=== PATIENT | female | born 1950 | race Caucasian/White ===

== ENCOUNTER → 2018-02-20 | Outpatient (CLI) | payer BC, MEDICARE ==
--- NOTE | 2018-02-20 17:11 | KCIC ---
MRI of the lumbar spine without contrast 02/20/2018 CLINICAL HISTORY: Low back pain which radiates down the left leg for one month. TECHNIQUE: Unenhanced T1-weighted and T2-weighted sagittal and axial and inversion recovery sagittal images of the lumbar spine were obtained. FINDINGS: Comparison is made to the patient's MRI of the lumbar spine dated 06/22/2011. This was performed at [facility]. Mild to moderate S-shaped curvature of the thoracolumbar spine is seen. Degenerative signal changes are seen involving the L2-3, L3-4 and L5-S1 discs. Degenerative signal changes are seen within the marrow surrounding these discs. The patient is post laminectomy and fusion using cage like devices at L4-5. The conus medullaris is normal morphology, position, and signal characteristics. Rounded high signal intensity lesions are seen on the T2-weighted images involving both kidneys. These measure 5 mm to 3 cm in size. They likely represent cysts. At the L1-2, L2-3 and L3-4 disc spaces there are minimal to mild generalized disc bulges. Degenerative changes are seen involving the facet joints bilaterally. There is mild ligamentum flavum hypertrophy bilaterally. These findings do not result in significant central spinal canal or neural foraminal stenosis. At the L4-5 level degenerative changes are seen involving the facet joints bilaterally. These findings do not result in significant central spinal canal or neural foraminal stenosis. At the L5-S1 disc space there is a minimal generalized disc bulge. Degenerative changes are seen involving the facet joints bilaterally. These findings do not result in significant central spinal canal or neural foraminal stenosis. IMPRESSION: 1. Post laminectomy and fusion at L4-5. 2. The changes of degenerative disc disease are seen involving the lumbar spine. These findings do not result in significant central spinal canal or neural foraminal stenosis at any level. Electronically signed by: Kong Hernandez MD (02/20/2018 5:07 PM) [facility]-KCIC1
== END | disposition home or self-care (01) ==
LOC: KCIC MRI 13:41
PROVIDERS: ATTEND Physician Assistant Medical
DX: M51.36 Other intervertebral disc degeneration, lumbar region (principal); M47.897 Other spondylosis, lumbosacral region
CPT/HCPCS: 72148

== ENCOUNTER 2019-05-21 09:20 | Day surgery (SDC) | payer MEDICARE ==
[~2019-05-21 09:20] MED LIST: AMIO200T4 PO; APIX5TAB PO; FENO145T30 PO; GABA-585 PO; HYDROmorphone 2 MG/ML VIAL IV PRN; IV RINGERS,LACTATED 1000ML 1,000 ML IV SCH; LEVO175T5 PO; LIDOCAINE 1% PF 2 ML VIAL. ID PRN; LISI1TAB19 PO; LOVA40TA2 PO; METF500T16 PO; METO-239 PO; MORPHINE SULFATE 2 MG/ML VIAL. IV PRN; ONDANSETRON PF 4 MG/2 ML VIAL. IV PRN; PROCHLORPERAZINE 10 MG/2 ML VIAL. IV PRN; TYLENOL PM PO; VENL150T PO; fentaNYL PF VIAL 100 MCG/2 ML VIAL IV PRN
[2019-05-21] MEDS ORDERED: LIDOCAINE 2% TOPICAL JELLY 30GM TUBE. TP ONE (10:00)
[2019-05-21] MEDS ORDERED: BENZOCAINE ONE 20% MUCOSAL SPRAY. MM (10:00)
[2019-05-21] MEDS ORDERED: LIDOCAINE 2% VISCOUS 15 ML SOLUTION. SWSW ONE (10:00)
[2019-05-21] MEDS ORDERED: PROPOFOL 0 ML IV ONE (10:17)
[2019-05-21] MEDS ORDERED: LIDOCAINE 2% PF 5 ML VIAL. ONE (10:17)
[2019-05-21] MEDS ORDERED: ePHEDrine PF IN SALINE 50 MG/10 ML SYRINGE. IV ONE (10:17)
[2019-05-21 11:11] LABS: BASO # 0.1 x10^3/uL (0.0-0.2); BASO % 1 % (0-3); EOS # 0.1 x10^3/uL (0.0-0.7); EOS % 1 % (0-3); HEMATOCRIT 39.2 % (36.0-47.0); HEMOGLOBIN 12.6 g/dL (12.0-15.5); LYMPH # 2.7 x10^3/uL (1.0-4.8); LYMPH % 28 % (24-48); MEAN CORPUSCULAR HEMOGLOBIN 29 pg (25-35); MEAN CORPUSCULAR HGB CONC 32 g/dL (31-37); MEAN CORPUSCULAR VOLUME 89 fL (79-100); MONO # 0.8 x10^3/uL (0.0-1.1); MONO % 8 % (0-9); NEUT # 5.9 x10^3/uL (1.8-7.7); NEUT % 62 % (31-73); PLATELET COUNT 292 x10^3/uL (140-400); RED BLOOD COUNT 4.42 x10^6/uL (3.50-5.40); RED CELL DISTRIBUTION WIDTH 15.7 % (11.5-14.5); WHITE BLOOD COUNT 9.5 x10^3/uL (4.0-11.0)
[2019-05-21 11:18] LABS: PROTHROMBIN TIME PATIENT 16.1 SEC (11.7-14.0)
[2019-05-21 11:19] LABS: CALCIUM 8.9 mg/dL (8.5-10.1); CREATININE 0.9 mg/dL (0.6-1.0); GFR 62.1; POTASSIUM 3.8 mmol/L (3.5-5.1)
--- NOTE | 2019-05-21 11:25 | EKG ---
[facility] [address] [place] [address] Test Date: 2019-05-21 Test Time: 09:37:48 Pat Name: CHUY LIRA Department: Room: Gender: F General Service Officer: MOLLY Guerrero : 1950 Requested By: LION BEASLEY Order Number: [id number] Reading MD: Measurements Intervals [place] Rate: 60 P: [place]: QRS: 0 QRSD: 80 T: 48 QT: 432 QTc: 436 Interpretive Statements IRREGULAR RHYTHM, NO P-WAVE FOUND LEFTWARD AXIS QRS(T) CONTOUR ABNORMALITY CONSIDER ANTEROLATERAL MYOCARDIAL DAMAGE POSSIBLY ABNORMAL ECG RI6.01 No previous ECG available for comparison
--- NOTE | 2019-05-21 11:45 | EKG ---
[facility] [address] [place] [address] Test Date: 2019-05-21 Test Time: 11:32:49 Pat Name: CHUY LIRA Department: Room: Gender: F Die Grinder: : 1950 Requested By: LION BEASLEY Order Number: [id number] Reading MD: Measurements Intervals [place] Rate: 60 P: NE: QRS: -2 QRSD: 86 T: 52 QT: 448 QTc: 453 Interpretive Statements IRREGULAR RHYTHM, NO P-WAVE FOUND LEFTWARD AXIS NO SPECIFIC ECG ABNORMALITIES RI6.01 Unconfirmed report No previous ECG available for comparison
[2019-05-21 11:52] VITALS: BP 115/46
--- NOTE | 2019-05-21 13:27 | CARD ---
MR#: [id number] Date of Study: 05/21/2019 Ordering Physician: LION JESSICA, Referring Physician: LION JESSICA, Tech: Sayda Dey APPROVED REPORT EXAM: Transesophageal echocardiogram with color flow Doppler and Synchronized Cardioversion. INDICATION Atrial Fibrillation Echo Enhancing Agent Indication: Rule out thrombus Reason For Test : Rule out Intracardiac Thrombus. PROCEDURE After obtaining informed consent, patient underwent transesophageal echo in the PACU. Type of Sedation : General Anesthesia Sedation was administered by Mratin Barth. Sedation was achieved with Propofol 110mg intravenously. Transesophageal probe was inserted and advanced into esophagus by Hosea Jessica MD. The MT was performed without complications. Synchronized Cardioversion attempted: Unsuccessful after two shocks at 200J and 360J Throughout the procedure, the blood pressure, pulse oximetry, cardiac rhythm, and rate were monitored . LEFT VENTRICLE The left ventricle is normal size. There is mild to moderate concentric left ventricular hypertrophy. The left ventricular systolic function is normal and the ejection fraction is within normal range. T he Ejection Fraction is 50-55%. There is normal LV segmental wall motion. Tissue Doppler imaging reve als moderate left ventricular diastolic dysfunction. No left ventricle thrombus noted on this study. RIGHT VENTRICLE The right ventricle is normal size. There is normal right ventricular wall thickness. The right ventr icular systolic function is normal. ATRIA The left atrium size is normal. The right atrium size is normal. The interatrial septum is intact wit h no evidence for an atrial septal defect or patent foramen ovale as noted on 2-D or Doppler imaging. There is no thrombus noted in the left atrial appendage. AORTIC VALVE The aortic valve is calcified but opens well. Doppler and Color Flow revealed no significant aortic r egurgitation. There is no significant aortic valvular stenosis. MITRAL VALVE The mitral valve is normal in structure and function. There is no evidence of mitral valve prolapse. There is no mitral valve stenosis. Doppler and Color Flow revealed no mitral valve regurgitation note d. TRICUSPID VALVE The tricuspid valve is normal in structure and function. Doppler and Color Flow revealed no tricuspid valve regurgitation noted. There is no tricuspid valve prolapse or vegetation. There is no tricuspid valve stenosis. PULMONIC VALVE The pulmonic valve is not well visualized. GREAT VESSELS The aortic root is normal in size. The ascending aorta is normal in size. The IVC is normal in size a nd collapses >50% with inspiration. Critical Notification Critical Value: No <Conclusion> The left ventricular systolic function is normal and the ejection fraction is within normal range. Th e Ejection Fraction is 50-55%. There is normal LV segmental wall motion. There is no thrombus noted in the left atrial appendage. Unsuccessful cardioversion after two attempts. Signed by : Lion Jessica, Electronically Approved : 05/21/2019 13:26:41
== END 2019-05-21 12:15 | disposition home or self-care (01) ==
LOC: ECHO 09:20 → MERGE 10:30 → ECHO 12:15
PROVIDERS: ATTEND Internal Medicine Cardiovascular Disease
DX: I48.91 Unspecified atrial fibrillation (principal); E11.42 Type 2 diabetes mellitus with diabetic polyneuropathy; F32.9 Major depressive disorder, single episode, unspecified; E66.9 Obesity, unspecified; G43.909 Migraine, unspecified, not intractable, without status migrainosus; Z87.891 Personal history of nicotine dependence; E03.9 Hypothyroidism, unspecified; Z87.440 Personal history of urinary (tract) infections; Z79.899 Other long term (current) drug therapy; Z86.73 Personal history of transient ischemic attack (TIA), and cerebral infarction without residual deficits; Z90.49 Acquired absence of other specified parts of digestive tract; Z90.710 Acquired absence of both cervix and uterus; Z98.51 Tubal ligation status; Z72.89 Other problems related to lifestyle; Z79.84 Long term (current) use of oral hypoglycemic drugs
CPT/HCPCS: 36415; 80048; 82962; 85025; 85610; 85730; 92960; 93005; 93312; 93325; J7120; J0171; J2001; J2704

== ENCOUNTER 2020-07-07 15:43 | Emergency (ER) | payer MEDICARE ==
[~2020-07-07] VITALS: Ht 157.5 cm; Wt 104.5 kg
[~2020-07-07 15:43] MED LIST changes: -AMIO200T4 PO; +AMIO200T6 PO; +FENO145T3 PO; -FENO145T30 PO; -HYDROmorphone 2 MG/ML VIAL IV PRN; -IV RINGERS,LACTATED 1000ML 1,000 ML IV SCH; -LIDOCAINE 1% PF 2 ML VIAL. ID PRN; -LISI1TAB19 PO; +LISI1TAB37 PO; -MORPHINE SULFATE 2 MG/ML VIAL. IV PRN; -ONDANSETRON PF 4 MG/2 ML VIAL. IV PRN; -PROCHLORPERAZINE 10 MG/2 ML VIAL. IV PRN; -fentaNYL PF VIAL 100 MCG/2 ML VIAL IV PRN
--- NOTE | 2020-07-07 16:25 | PHYS DOC ---
General Adult EDM: Chief Complaint: SHORTNESS OF BREATH HPI: HPI: Patient is a 70 year old female presents to the emergency department complaining of shortness of breath, also states that she has been unable to sleep lying down at night since 05 July 2020 because of her shortness of breath. Patient states that she was released Tuesday from [place] emergency department with a diagnosis of new onset CHF and it was recommended that she follow-up with her cad designer Dr. Jessica today. Patient states that she tried to make an appointment with Dr. Jessica and was told that he is not in the office this week. Patient states that she was told to wait and the office will call her back to try to set up an appointment. Patient states that it took him a long time to call her back and it is now late in the afternoon so she decided to come to the emergency department here at [facility] to be reevaluated for her shortness of breath. Patient states that she started feeling some mild shortness of breath on , stating that the next day on the she noticed her shortness of breath increasing with exertion and noticed some sternal chest pressure with her shortness of breath that she would rate a 4/10 1-10 pain scale that would resolve down to a 0 pain scale and no shortness of breath complaints if she was sitting at rest. Patient denies any nausea or vomiting, abdominal pains, denies chest palpitations, denies radiation of her sternal chest pressure when it does arise, denies cough or congestion, denies nasal congestion. Patient denies any recent fever or chills. Patient denies any diaphoretic episodes since the onset of mild shortness of breath on 04 July 2020. Patient also reported that she had a recent exposure by her sister and [id number] to the COVID-19 virus. Patient states that she had a Covid test drawn at [facility] emergency department early Tuesday morning at approximately 4 AM. Patient reports that she sees Dr. Jessica for atrial fibrillation that she was diagnosed approximately 2 years ago. Patient reports that she has a history of hypertension, type 2 diabetes, hypothyroidism, chronic arthritis, high cholesterol levels, extremity tremors, and anxiety disorder. Patient states that she smoked cigarettes from the time she was young teenager till approximately 2 years ago in which she quit smoking. Patient denies any recent travel outside the [place], also denies recent travel outside the [facility] area, patient reports having the flu vaccination, patient has not had a COVID-19 virus vaccination this year. Patient denies alcohol use, denies illicit drug use. Patient reports past surgical history of , tubal ligation, total hysterectomy, gallbladder removal, lumbar surgery years ago. Patient denies recent surgery over the past 18 months Review of Systems: Review of Systems: 14 body systems of review of systems have been reviewed. See HPI for pertinent positives and negative responses, otherwise all other systems are negative, nonpertinent or noncontributory. Heart Score: HEART Score for Chest Pain: HEART Score for Chest Pain Response (Comments) Value History Slighlty/Non-Suspicious 0 Age > 65 2 Risk Factors 1 or 2 Risk Factors 1 Troponin < Normal Limit 0 Total 3 Risk Factors: Risk Factors: DM, Current or recent (<one month) smoker, HTN, HLP, family hi story of CAD, obesity. Risk Scores: Score 0 - 3: 2.5% MACE over next 6 weeks - Discharge Home Score 4 - 6: 20.3% MACE over next 6 weeks - Admit for Clinical Observation Score 7 - 10: 72.7% MACE over next 6 weeks - Early Invasive Strategies Current Medications: Patient states this may not be a full med list as she forgot to bring her m edicines with her today to the emergency department. Patient reports taking 9 mg Coumadin daily, 150 mg tablet of Effexor daily, 500 mg Metformin every morning, 200 mg amiodarone daily, fenofibrate 145 mg daily, 175 mcg of levothyroxine daily, metoprolol XL 25 mg daily, lovastatin 40 mg daily, lisinopril/hydrochlorothiazide 20-12.5 mg daily. Allergies: Allergies: Allergies Coded Allergies Type Severity Reaction Last Updated Verified pentazocine Allergy Unknown Rash 05/17/19 Yes Physical Exam: PE: Constitutional: Well developed, well nourished, non-toxic appearance. Patient was initially anxious and in acute respiratory distress with a respiration rate of 28 during initial examination as patient was transferring from wheelchair to the bed. Patient quickly recovered to a nonanxious state after patient was sitting in the bed for just 5 minutes, patient respiratory rate down to 16 and unlabored speaking in full sentences. Patient did not become hypoxic during this brief event during the initial examination states. Patient was attached to pvc monitor and pulse ox monitor prior to her transfer from wheelchair to bed. The patient's cardiac rate remained at 72 to 77 bpm during transfer, patient's heart rate decreased to 57 bpm after a 5-minute rest in bed, irregular rhythm on a 5-lead bedside pvc monitor consistent with atrial fibrillation. HENT: Normocephalic, atraumatic, bilateral external ears normal, oropharynx moist, no oral exudates, nose normal. Eyes: PERRLA, EOMI, conjunctiva normal, no discharge. Neck: Normal range of motion, no tenderness, supple, no stridor. Cardiovascular:Heart rate irregular rhythm, no murmur noted per auscultation, PMI just left of sternum between ribs 4 and 5. Lungs & Thorax: Bilateral breath sounds clear to auscultation all lung castellanos, no adventitious lung sounds appreciated. Abdomen: Bowel sounds normal, soft, no tenderness, no masses, no pulsatile mas ses. Abdomen round, patient obese state. Skin: Warm, dry, no erythema, no rash. Back: No tenderness, no CVA tenderness. Extremities: No tenderness, no cyanosis, no clubbing, ROM intact, no edema. Neurologic: Alert and oriented X 3, normal motor function, normal sensory function, no focal deficits noted. Psychologic: Affect normal, judgement normal, mood normal. Patient affect initially anxious during initial moments of physical examination, however when patient was transferred in the bed and patient started speaking of her past medical history patient affect became normal. EKG: EKG: EKG performed at 1614 by ED nursing staff, heart rate 58 bpm irregular rhythm no P waves found consistent with atrial fibrillation, QTc interval 0. 450, no ac [place] STEMI, no ACS, no acute ischemia noted, EKG interpreted by ED attending physician Dr. Hermosillo. Radiology/Procedures: Radiology/Procedures: PATIENT: CHUY LIRA ACCOUNT: [id number] : 1950 LOCATION: ER AGE: 70 SEX: F EXAM STATUS: REG ER ORD. PHYSICIAN: ROBIN FAYE APRN REASON: SHORT OF BREATH, PUI PROCEDURE: CHEST AP ONLY EXAM: CHEST 1 VIEW History: Shortness of breath COMPARISON: None available. TECHNIQUE: Single portable radiograph of the chest FINDINGS: Mild cardiomegaly. Mild bibasilar lung airspace opacities likely a telectasis or infiltrates. The costophrenic sulci are clear and well demarcated. IMPRESSION: Mild bibasilar lung airspace opacities likely atelectasis or infiltrates. Electronically signed by: Blake Arambula MD (07/07/2020 4:49 PM) [id number] DICTATED and SIGNED BY: BLAKE ARAMBULA MD DATE: 07/07/20 [id number] Course & Med Decision Making: Course & Med Decision Making Pertinent Labs and Imaging studies reviewed. (See chart for details) 70-year-old female presents emergency department complaint of shortness of breath started on 04 July 2020, has slowly become worse, was seen at [facility] ER on 07/06/2020 and sent home with a diagnosis of new onset CHF was recommended that she follow-up with her cad designer Dr. Jessica, patient was unable to secure a appointment today so she came into the emergency department here for reevaluation. Patient was hooked to pvc monitor pulse ox and NIBP, x-ray and labs were ordered, pending results at this time. Patient currently is resting in bed comfortably in no apparent distress, the patient is nontoxic. Patient's labs, EKG, chest x-ray compared to results from [facility]' were equivocal however patient's BNP has decreased, her troponin-I remains unremarkable, discussed patient case with cad designer Dr. Garcia who recommended patient be discharge home and he would call her first thing in the morning to reevaluate her status and sister and make an appointment to be seen in the cardiology office. Discussed this plan with patient who is amenable to this plan, will go home and await call from cardiology in the morning. Patient gave verbal understanding of discharge home instructions, return to ER precautions and concerns, follow-up with cardiology this week, patient had no further questions or concerns, patient discharged home. Upon reexamination of the patient, patient remained in a nontoxic state in no apparent distress vital signs remained stable throughout her emergency department stay.Reexamination vital signs patient's oral temp 98.7, respirations 16 nonlabored, heart rate 59 bpm, O2 sat 99% on room air, NIBP from right upper extremity 182/77. Patient's MACE score equals 3 Impression: #1 anxiety about health 2 dyspnea on exertion #3 chest discomfort 4 hypertension #5 atrial fibrillation history #6 elevated INR 1.7 Dragon Disclaimer: Giovanna Disclaimer: This electronic medical record was generated, in whole or in part, using a voice recognition dictation system. Departure Departure Impression: Primary Impression: Anxiety about health Additional Impressions: Chest discomfort Hypertension Qualified Codes: I10 - Essential (primary) hypertension Atrial fibrillation Qualified Codes: I48.11 - Longstanding persistent atrial fibrillation Elevated INR Person under investigation for COVID-19 Disposition: 01 DC HOME SELF CARE/HOMELESS Condition: STABLE Referrals: MICHAEL STANFORD (PCP) Additional Instructions: I talked with Dr. Jessica's partner Dr. Gracia who says he will call you first thing in the morning to reevaluate how you are doing and to assist in making an appointment for you to be seen in the office. Please return the emergency department for worsening symptoms or other concerns. You should be contacted with your COVID-19 results within the next day or 2. You have been tested for or diagnosed with COVID-19. It is an infection caused by a new type of coronavirus. COVID-19 will cause cold-like or mild flu symptoms in most. It can cause more severe symptoms like problems breathing in some. There is no treatment for COVID-19. The body will clear the infection over time. Self-care will help to ease discomfort. Steps to Take: Self-Care Rest as needed. Healthy habits may help you feel better. Steps include: Choose healthy foods including fruits and vegetables. Drink water throughout the day. Get plenty of sleep each night. If you smoke, try to quit. It may ease breathing. Avoid alcohol. Keep Others Healthy The virus can spread to others. Droplets are released every time you sneeze or cough. The droplets can get into the mouth, nose, or eyes of people near you and lead to infection. To lower the chances of spreading COVID-19 to others: Stay at home until your doctor has said it is safe to leave. If you tested positive this will mean staying isolated until both of the following are true: At least 7 days have passed since the start of illness. You are free of fever for at least 72 hours without the use of medicine. During this time: - Avoid public areas, events, or transportation. Do not return to work or school until your doctor has said it is safe to do so. - Call ahead if you need to go to a medical center. Let them know you may have COVID-19. It will help them guide you where to go. They may also ask you to wear a facemask when you come to the office. - If you call for emergency medical services, let them know you may have COVID- 19. While at home: - Try to avoid close contact with others. Stay about 6 feet away. - If possible, spend most of your time in a separate room from others. - Use a face mask if you will be in close contact with others such as sharing a room or vehicle. - Have someone wipe down common surfaces in the home. Use household master automotive glass technician every day on areas like doorknobs, counters, or sinks. - Cough or sneeze into a tissue. Throw the tissue away right after use. If a tissue is not available, cough or sneeze into your elbow. - Wash your hands often. Wash them after sneezing or coughing. Use soap and water and wash for at least 20 seconds. Alcohol based hand acid tank cleaner can be used if soap and water is not available. - Do not prepare food for others. Avoid sharing personal items like forks, spoons, or toothbrushes. - Avoid close contact with pets while you are sick. There is no evidence of the virus passing to pets. This is a safety step until more is known about this virus. Isolation can be frustrating. Social interaction can help. Keep in touch with friends and family through phone and tech options. You can still interact with others in your home, just keep a safe distance of about 6 feet. Follow-up: Your doctors office will check in with you to see if there are any changes in your health. You may be asked to keep track of symptoms to share with them. They will also let you know when you are clear to be in public again. Problems to Look Out For: Contact your doctor if your recovery is not going as you expect. Get emergency care if you have problems such as: - Trouble breathing - Nonstop chest pain or pressure - Changes in awareness, confusion, or problems waking - Lips or face have bluish color - Worsening of symptoms If you think you have an emergency, call for emergency medical services right away. As taken from [facility] EMERGENCY DEPARTMENT GENERAL DISCHARGE INSTRUCTIONS Thank you for coming to [facility] Emergency Department (ED) today and trusting us with you care. We trust that you had a positive experience in our Emergency Department. If you wish to speak to the department management, you may call the Director at [phone]. YOUR FOLLOW UP INSTRUCTIONS ARE FOLLOWS: 1. Do you have a private Doctor? If you do not have a private doctor, please ask for a resource list of physicians or clinics that may be able to assist you with follow up care. 2. The Emergency Physicain has interpreted your x-rays. The X-Ray specialist will also review them. If there is a change in the findings, you will be notified in 48 hours when at all possible. 3. A lab test or culture has been done, your results will be reviewed and you will be notified if you need a change in treatment. ADDITIONAL INSTRUCTIONS AND INFORMATION: 1. Your care today has been supervised by a physician who is specially trained in emergency care. Many problems require more than one evaluation for a complete diagnosis and treatment. We recommend that you schedule your follow up appointment as recomme nded to ensure complete treatment of you illness or injury. If you are unable to obtain follow up care and continue to have a problem, or if your condition worsens, we recommend that you return to the ED. 2. We are not able to safely determine your condition over the phone nor are we able to give sound medical advice over the phone. For these safety reasons, if you call for medical advice we will ask you to come to the ED for further evaluation. 3. If you have any questions regarding these discharge instructions please call the ED at [phone]. SAFETY INFORMATION: In the interest of safety, wellness, and injury prevention; we encourage you to wear your sealbelt, if you smoke; quite smoking, and we encourage family to use a protective helmet for bicycling and other sporting events that present an increased risk for head injury. IF YOUR SYMPTOMS WORSEN OR NEW SYMPTOMS DEVELOP, OR YOU HAVE CONCERNS ABOUT YOUR CONDITION; OR IF YOUR CONDITION WORSENS WHILE YOU ARE WAITING FOR YOUR FOLLOW UP APPOINTMENT; EITHER CONTACT YOUR PRIMARY CARE DOCTOR, THE PHYSICIAN WHOSE NAME AND NUMBER YOU WERE GIVEN, OR RETURN TO THE ED IMMEDIATELY. ROBIN FAYE APRN Jul 07, 2020 16:25
[2020-07-07 16:45] LABS: HEMATOCRIT 34.2 % (36.0-47.0); HEMOGLOBIN 10.9 g/dL (12.0-15.5); RED BLOOD COUNT 4.29 x10^6/uL (3.50-5.40); RED CELL DISTRIBUTION WIDTH 17.8 % (11.5-14.5); WHITE BLOOD COUNT 9.8 x10^3/uL (4.0-11.0)
--- NOTE | 2020-07-07 16:51 | RAD ---
EXAM: CHEST 1 VIEW History: Shortness of breath COMPARISON: None available. TECHNIQUE: Single portable radiograph of the chest FINDINGS: Mild cardiomegaly. Mild bibasilar lung airspace opacities likely atelectasis or infiltrate s. The costophrenic sulci are clear and well demarcated. IMPRESSION: Mild bibasilar lung airspace opacities likely atelectasis or infiltrates. Electronically signed by: Blake Arambula MD (07/07/2020 4:49 PM) [id number]
[2020-07-07 16:58] LABS: PROTHROMBIN TIME PATIENT 19.9 SEC (11.7-14.0)
[2020-07-07 17:01] LABS: CALCIUM 8.3 mg/dL (8.5-10.1); GFR 54.8; POTASSIUM 3.4 mmol/L (3.5-5.1)
[2020-07-07 17:02] LABS: D-DIMER 0.37 ug/mlFEU (0.00-0.50)
[2020-07-07 17:06] LABS: ALBUMIN/GLOBULIN RATIO 0.8 (1.0-1.7); PHOSPHORUS 4.1 mg/dL (2.6-4.7); TOTAL BILIRUBIN 0.4 mg/dL (0.2-1.0); TOTAL PROTEIN 6.7 g/dL (6.4-8.2)
[2020-07-07 19:28] VITALS: BP 178/112
--- NOTE | 2020-07-08 22:51 | EKG ---
[facility] [address] [place] [address] Test Date: 2020-07-07 Test Time: 16:14:55 Pat Name: CHUY LIRA Department: Room: Gender: F Nightman: : 1950 Requested By: ROBIN FAYE Order Number: [id number] Reading MD: Measurements Intervals [place] Rate: 58 P: [place]: QRS: 15 QRSD: 84 T: 59 QT: 454 QTc: 450 Interpretive Statements IRREGULAR RHYTHM, NO P-WAVE FOUND OTHERWISE NORMAL ECG RI6.02 No previous ECG available for comparison
== END 2020-07-07 19:41 | disposition home or self-care (01) ==
LOC: ER 15:43
DX: F41.9 Anxiety disorder, unspecified (principal); R06.09 Other forms of dyspnea; R07.89 Other chest pain; I10 Essential (primary) hypertension; I48.91 Unspecified atrial fibrillation; R79.89 Other specified abnormal findings of blood chemistry; Z88.8 Allergy status to other drugs, medicaments and biological substances
CPT/HCPCS: 36415; 71045; 80053; 83735; 83880; 84100; 84484; 85027; 85379; 85610; 85730; 93005; 99285

== ENCOUNTER 2021-12-08 11:48 | Inpatient (IN) | payer MEDICARE ==
[~2021-12-08] VITALS: Ht 160 cm; Wt 103.0 kg
[2021-12-08 11:36] VITALS: BP 178/76
[~2021-12-08 11:48] MED LIST changes: +AMIO200T53 PO; -AMIO200T6 PO
[2021-12-08] MEDS ORDERED: KETOROLAC 15 MG/ML VIAL. IVP PRN (12:15)
[2021-12-08] MEDS ORDERED: ONDANSETRON PF 4 MG/2 ML VIAL. IVP PRN (12:15)
[2021-12-08] MEDS ORDERED: IV NORMAL SALINE 1000ML BAG 1,000 ML IV SCH (12:15)
[2021-12-08] MEDS ORDERED: HYDROmorphone 2 MG/ML INJ. IVP ONE (13:00)
[2021-12-08] MEDS ORDERED: HYDROmorphone 2 MG/ML INJ. IVP PRN ×2 (13:15→16:15)
--- NOTE | 2021-12-08 14:24 | PDOC2 ---
ERIKA BARTH 12/08/21 1424: UROLOGY CONSULT Date of Service DATE: 12/08/21 TIME: 14:03 Reason for Consult Reason for Consult: ureter stone Identification/Chief Complaint Chief Complaint right lower quadrant pain History of Present Illness Reason for Visit: 71yo female with PMH of afib presents to [facility] ER for right lower quadrant pain. This pain has been intermittent over the past month but early this morning her pain became severe. It is being controlled with dilaudid here. She denies fev ers, dysuria, gross hematuria. CT in ER found large proximal right ureter stone and additional right renal stones. She has history of kidney stones and has seen Dr. Lewis in the past for management of this. He had recommended PCNL but pt did not proceed. This afternoon she is drowsy from the pain medications. Her daughter is bedside and assists with history. She has apparently had abnormal UAs over the past two weeks and had been taking nitrofurantoin prior to ER visit. Past Medical History Cardiovascular: AFIB Pulmonary: No pertinent hx Renal/: Other (kidney stones) Endocrine: Diabetes Past Surgical History Past Surgical History: Hysterectomy, Other (ureteroscopy) Family History Family History: Family History Unknown Social History Quit ALCOHOL: rare Current Medications Current Medications Current Medications Hydromorphone HCl (Dilaudid) 1 mg PRN Q2HRS ONCE IVP Last administered on 12/08/21at 13:12; Start 12/08/21 at 13:00; Stop 12/08/21 at 13:06; Status DC Hydromorphone HCl (Dilaudid) 1 mg Q2HR PRN IVP PAIN; Start 12/08/21 at 13:15 Ketorolac Tromethamine (Toradol 15mg Vial) 15 mg PRN Q6HRS PRN IVP INFLAMMATION Last administered on 12/08/21at 12:48; Start 12/08/21 at 12:15; Stop 12/13/21 at 12:14 Ondansetron HCl (Zofran) 4 mg PRN Q6HRS PRN IVP NAUSEA/VOMITING; Start 12/08/21 at 12:15 Sodium Chloride 1,000 ml @ 100 mls/hr Q10H IV Last administered on 12/08/21at 12:47; Start 12/08/21 at 12:15 Allergies Allergies: Coded Allergies: pentazocine (Verified Allergy, Intermediate, Rash, 12/08/21) lorazepam (Unverified Allergy, Mild, 12/08/21) Causes delirium ROS Review Of Systems: CONSTITUTIONAL: No fever or chills EYES: No recent changes SKIN: No rash or itching CARDIOVASCULAR: No chest pain, syncope, palpitations, or edema RESPIRATORY: No SOB or cough GASTROINTESTINAL: No nausea, vomiting or abdominal pain NEUROLOGICAL: No headaches or weakness ENDOCRINE: No cold or heat intolerance GENITOURINARY: as in hpi MUSCULOSKELETAL: No back pain or joint pain LYMPHATICS: No enlarged lymph nodes PSYCHIATRIC: No anxiety or depression Physical Exam Physical Exam: General: Pleasant, no acute distress, well groomed Eyes: conjunctiva anicteric, eyes full range of motion ENT: moist oral mucosa, normal dentition Neck: Trachea midline, no masses Respiratory: unlabored breathing, not using accessory muscles Cardiovascular: Regular rate and rhythm, no peripheral edema Abdomen: right abdomen tender, nondistended Skin: no rashes or skin lesions on visualized skin Psych: normal mood, affect. Alert and oriented x 3 but drowsy Vitals VITALS Vital Signs Date Time Temp Pulse Resp B/P (MAP) Pulse Ox O2 Delivery O2 Flow Rate FiO2 12/08/21 13:46 99 Nasal Cannula 2.0 12/08/21 11:36 98.6 66 19 178/76 (110) 98.6 Labs Labs Reviewed labs from [facility] Images Images Reviewed imaging from [facility]' Findings: There is moderate right hydronephrosis with a proximal right nephrolith measuring 1.3 x 0.9 x 0.7 cm. Benign right lower pole 4.1 cm renal cyst. Multiple additional right nephroliths. Redemonstrated left posterior cortex exophytic cyst measuring 1.7 cm with subtle mural calcification. No left hydronephrosis or nephrolithiasis. The lung bases are clear. Mild enlarged cardiac silhouette with fatty hypertrophy of the intra- atrial septum. The liver, pancreas, spleen and adrenal glands are unremarkable. The gallbladder is absent. The stomach and small bowel are within normal limits. Normal appendix. Mild colonic diverticulosis. No evidence of diverticulitis. The bladder is unremarkable. Status post hysterectomy. Aorta iliac calci fication without aneurysm. No adenopathy. No free intraperitoneal air or fluid. Intervertebral disc spacer and posterior decompression at L4-L5. Soft tissues are unremarkable. Impression: 1. Proximal right ureteral stone measuring 1.3 x 0.7 x 0.9 cm causing moderate right hydronephrosis and proximal hydroureter. Multiple additional right nephroliths. Assessment/Plan Assessment/Plan 1.4cm proximal right ureter stone Reviewed imaging, ureter stone noted as well as two 9mm and one 1.7cm right renal stones UA is pending but pt has been on abx Discussed treatment options. Stone unlikely to pass spontaneously. URS vs. ESWL. Will proceed with ureteroscopy inpatient due to continued severe pain. Will attempt to address renal stones but this may need a separate procedure. Risks and benefits reviewed with pt and her daughter. Scheduled for this afternoon with Dr. Hogan. Pt to remain NPO. May d/c after procedure or d/c tomorrow if pain managed. MELYSSA HOGAN MD 12/08/21 1652: UROLOGY CONSULT Assessment/Plan Assessment/Plan Patient seen and examined. Proceed to OR today for ureteroscopy, laser of stone, stent placement due uncontrolled pain / nausea, and renal failure. Risks / benefits reviewed. All questions answered. Discussed need for ureteral stent for approx 1 wek after the procedure. ERIKA BARTH December 08, 2021 14:24 MELYSSA HOGAN MD December 08, 2021 16:52
[2021-12-08] MEDS ORDERED: ceFAZolin SODIUM IV Push 1 GM VIAL. IVP PRN (14:30)
[2021-12-08 15:00] VITALS: BP 154/57
[2021-12-08] MEDS ORDERED: IOHEXOL 300 MG/ML 50 ML VIAL. ONE (15:43)
[2021-12-08] MEDS ORDERED: LIDOCAINE 2% JELLY 6ML IN APPLICATOR. ONE (15:45)
[2021-12-08] MEDS ORDERED: SUCCINYLCHOLINE 200 MG/10 ML VIAL. ONE (16:11)
[2021-12-08] MEDS ORDERED: DEXAMETHASONE SOD PHOS 4 MG/ML VIAL ONE (16:12)
[2021-12-08] MEDS ORDERED: ONDANSETRON PF 4 MG/2 ML VIAL. ONE (16:12)
[2021-12-08] MEDS ORDERED: PROPOFOL 10 MG/ML (20ML) VIAL. IV ONE (16:12)
[2021-12-08] MEDS ORDERED: LIDOCAINE 2% PF 5 ML VIAL. ONE (16:12)
[2021-12-08] MEDS ORDERED: MORPHINE SULFATE 2 MG/ML INJ. IVP PRN (16:15)
[2021-12-08] MEDS ORDERED: IV RINGERS,LACTATED 1000ML 1,000 ML IV SCH (16:15)
[2021-12-08] MEDS ORDERED: PROCHLORPERAZINE 10 MG/2 ML VIAL. IVP PRN (16:15)
[2021-12-08] MEDS ORDERED: fentaNYL PF VIAL 100 MCG/2 ML VIAL IVP PRN ×2 (16:15)
[2021-12-08] MEDS ORDERED: fentaNYL PF VIAL 100 MCG/2 ML VIAL ONE (17:10)
[2021-12-08] MEDS ORDERED: DEXTROSE 50% 25 GM / 50ML DISP.SYRIN. IV PRN (17:30)
[2021-12-08] MEDS ORDERED: INSULIN LISPRO 300 UNITS/3 ML VIAL. SQ SCH (17:30)
[2021-12-08] MEDS ORDERED: ROCURONIUM 50 MG/5 ML VIAL. ONE (17:45)
[2021-12-08] MEDS ORDERED: GLYCOPYRROLATE 1 MG/5 ML VIAL. ONE (18:14)
[2021-12-08] MEDS ORDERED: NEOSTIGMINE METHYLSULFATE 5 MG/5 ML SYRINGE. ONE (18:14)
--- NOTE | 2021-12-08 18:21 | PDOC4 ---
OPERATIVE NOTE Date: Date: December 08, 2021 Pre-Op Diagnosis: right ureteral stone, right kidney stones Post-Op Diagnosis: right ureteral stone, right kidney stones, urinary tract infection Procedure Performed: Cystoscopy, right ureteral stent placement Right retrograde pyelogram with interpretation Surgeon: Melyssa Hogan MD Anesthesia Type: General Blood Loss: 0 mL Specimans Obtained: Urine for culture Findings: Diffuse cystitis and cloudy urine consistent with active UTI. Moderate right hydronephrosis with an extrarenal pelvis. Obstructing proximal right ureteral stone. Additional right renal pelvis stones. Complications: None Operative Note: Informed consent was obtained. Patient was taken to the operating room where general anesthesia was induced. Patient was placed in the dorsal lithotomy position and sterilely prepped and draped. A timeout was performed. The rigid cystoscope was advanced through the urethra and into the bladder. The bladder was noted to have diffuse erythema as well as cloudy urine consistent with acute urinary tract infection. The right ureteral orifice was cannulated with a guidewire and a ureteral catheter was advanced over that to the mid right ureter. A right retrograde pyelogram was performed which demonstrated obstruc ting right proximal ureteral stone, moderate right hydronephrosis. There was an obstructing stone in the proximal right ureter as well as multiple stones in the right renal pelvis. The right renal pelvis had an extrarenal configuration. Given the presence of active infection, decision was made to just place a stent and then return for stone treatment after the infection had been adequately treated. The guidewire was readvanced into the right ureter and up into the right renal pelvis. A 6 x 22 cm stent was then advanced over the wire. Appropriate curl was seen both proximally and distally in appropriate positions on fluoroscopy. The bladder was emptied. The patient was awakened and taken to the recovery room in stable condition. MELYSSA HOGAN MD December 08, 2021 18:21
[2021-12-08] MEDS ORDERED: ALBUTEROL SULFATE 2.5 MG/3 ML NEBU. NEB ONE (18:30)
[2021-12-08] MEDS ORDERED: NALOXONE 0.4 MG/ML VIAL. ONE (18:43)
[2021-12-08] MEDS ORDERED: SEVOFLURANE 61 TO 120 MINUTES. IH ONE (18:49)
[2021-12-08] MEDS ORDERED: cefTRIAXone IV Push 1 GM VIAL. IVP SCH (19:00)
[2021-12-08 19:53] VITALS: BP 136/57
--- NOTE | 2021-12-08 20:19 | HP ---
DATE OF SERVICE: 12/08/2021 ADMIT DATE: 12/08/2021 CHIEF COMPLAINT: Kidney stone. HISTORY OF PRESENT ILLNESS: The patient is a pleasant 71-year-old female who presented to the ER with flank pain on the right, rated a 10/10. They did some imaging. She had a kidney stone. She has now been admitted. We have consulted Urology. She just went to the OR for cystoscopy. She has been examined in the postoperative area. PAST MEDICAL HISTORY: Obesity, diabetes, hypothyroidism, chronic anticoagulation, arrhythmias, hyperlipidemia, hypertension, edema, chronic pain. ALLERGIES: TALWIN AND ATIVAN. FAMILY HISTORY: Hypertension. SOCIAL HISTORY: She does not drink, smoke or take drugs. MEDICATIONS: Reviewed. Please refer to the MRAD. REVIEW OF SYSTEMS: Unable to obtain. She is sedated. PHYSICAL EXAMINATION: VITALS: Within normal limits and are stable. GENERAL: She is sedated. She just got out of the OR. HEENT: Normal cephalic atraumatic, external auditory canals are patent. EYES: Extraocular muscles are intact, pupils are equally round and reactive to light and accommodation. MUSCULOSKELETAL: Well developed, well nourished, good range of motion. ENDOCRINE: No thyromegaly was palpated. LYMPHATICS: No cervical chain or axillary nodes were noted. HEMATOPOIETIC: No bruising. NECK: Supple, no JVD, no thyromegaly was noted. LUNGS: Clear to auscultation in all lung castellanos without rhonchi or wheezing. HEART: RRR, S1, S2 present. Peripheral pulses intact, no obvious murmurs were noted. ABDOMEN: Soft, nontender. Positive bowel sounds no organomegaly, normal bowel sounds. EXTREMITIES: Without any cyanosis, clubbing, or edema. Pedal pulses intact, Homans sign is negative. NEUROLOGIC: She is sedated. She just got out of the OR. PSYCHIATRIC: She is sedated. She just got out of the OR. SKIN: No ulcerations or rashes, good skin turgor, no jaundice. VASCULAR: Good capillary refill, neurovascular bundle appears to be intact. ASSESSMENT AND PLAN: Postoperative cystoscopy for renal stone. She did get a stent on the right. For now, we will continue IV antibiotics, IV fluids, p.r.n. pain meds, home meds, deep venous thrombosis prophylaxis. Full code. Appreciate Urology input. NKC/KENAN DR: Magaly TID: [id number]
== END 2021-12-09 | disposition home or self-care (01) | DRG 660 ==
LOC: 6 SOUTH 11:48
PROVIDERS: ADMIT Internal Medicine; ATTEND Internal Medicine
PROC: 0T768DZ Dilation of Right Ureter with Intraluminal Device, Via Natural or Artificial Opening Endoscopic (ICD-10-PCS; principal; 2021-12-08 16:30)
PROC: BT1D1ZZ Fluoroscopy of Right Kidney, Ureter and Bladder using Low Osmolar Contrast (ICD-10-PCS; 2021-12-08 16:30)
DX: N13.6 Pyonephrosis (principal); Z68.41 Body mass index [BMI] 40.0-44.9, adult; Z20.822 Contact with and (suspected) exposure to COVID-19; I48.91 Unspecified atrial fibrillation; E11.9 Type 2 diabetes mellitus without complications; E66.9 Obesity, unspecified; E78.5 Hyperlipidemia, unspecified; N19 Unspecified kidney failure; E03.9 Hypothyroidism, unspecified; I10 Essential (primary) hypertension; Z90.710 Acquired absence of both cervix and uterus; Z88.8 Allergy status to other drugs, medicaments and biological substances; Z79.899 Other long term (current) drug therapy; Z79.01 Long term (current) use of anticoagulants; Z82.49 Family history of ischemic heart disease and other diseases of the circulatory system
CPT/HCPCS: 76000; 82962; 87426; A4223; A4657; A4911; A4930; A6402; C1758; C1769; C2617; J0330; J0690; J0696; J1100; J1170; J1815; J1885; J2310; J2405; J2704; J2710; J3010; J3490; J7030; J7120; Q9967; G0378; J7613